=== PATIENT | female | born 1955 | race Caucasian/White ===

== ENCOUNTER 2021-01-20 10:23 | Observation (INO) ==
[~2021-01-20 10:23] MED LIST: Buffered Lidocaine 1% SYRIN 1 ml INTRADERM ONE; Clindamycin 900 MG/D5W BAG 900 MG/50 ML BAG IVPB ONE; DiMENhydriNATE IV 50 mg/ml 1 ml VIAL IV PUSH PRN; Lactated Ringers 1000 ml BAG 1,000 ML IV SCH; Naloxone 0.4 mg VIAL 0.4 mg/ml 1 ml VIAL IV PRN; Ondansetron 4 mg VIAL 2 MG/ML 2 ml VIAL IV PRN; oxyCODONE/Acetamin 5/325 mg TAB PO PRN
[2021-01-20] MEDS ORDERED: Heparin 5000 UNITS/ML 1 mL VIAL ONE (10:40)
[2021-01-20] MEDS ORDERED: Midazolam 5 mg/5 ml VIAL 1 mg/ml 5 ml VIAL (5 mg) ONE (11:22)
[2021-01-20] MEDS ORDERED: fentaNYL 250 mcg/5 ml 50 MCG/ML 5 ml VIAL (250 MCG) ONE (11:22)
[2021-01-20] MEDS ORDERED: Dexamethasone IV 4 MG/ML VIAL 1 ml VIAL ONE (11:24)
[2021-01-20] MEDS ORDERED: Glycopyrrolate IV 0.2 MG/ML 1 ML VIAL ONE (11:24)
[2021-01-20] MEDS ORDERED: Lidocaine 4% TOPICAL 50 ML TOP.SOLN ONE (11:24)
[2021-01-20] MEDS ORDERED: Propofol 10 MG/ML 20 ML BTL ONE (11:24)
[2021-01-20] MEDS ORDERED: Rocuronium 50 mg VIAL 10 mg/ml 5 ml VIAL (50 mg) ONE ×2 (11:28→13:50)
[2021-01-20] MEDS ORDERED: Bupivacaine 0.25% EPI 200,000 30 ML SDV ONE (11:43)
[2021-01-20] MEDS ORDERED: Phenylephrine 40 mcg/mL 10mL (400mcg) SYRINGE ONE (13:56)
[2021-01-20] MEDS ORDERED: fentaNYL 100 mcg/2 ml 50 MCG/ML VIAL ONE (16:25)
[2021-01-20] MEDS: fentaNYL 100 mcg/2 ml 50 MCG/ML VIAL IV PRN ×2 (16:26→16:39)
[2021-01-20] MEDS ORDERED: Ondansetron 4 mg VIAL 2 MG/ML 2 ml VIAL IV PRN (16:48)
[2021-01-20] MEDS ORDERED: oxyCODONE/Acetamin 5/325 mg TAB PO PRN (16:54)
[2021-01-20] MEDS: Lactated Ringers 1000 ml BAG 1,000 ML IV SCH (18:00)
[2021-01-21] MEDS: Lactated Ringers 1000 ml BAG 1,000 ML IV SCH (03:26)
[2021-01-21 06:23] LABS: ABS Lymphocytes 0.6 10^3/ul (1.0-4.8); ABS Monocytes 0.4 10^3/ul (0-0.8); Eosinophil % 0.2 %; Hematocrit 35 % (35-47); Hemoglobin 11.9 g/dL (12.0-16.0); Lymphocyte % 8.9 %; Mean Corpuscular HGB Conc 34 g/dL (31-36); Mean Corpuscular Hemoglobin 30 pg (27-31); Mean Corpuscular Volume 89 fL (80-97); Platelet Count 144 10^3/uL (150-450); Red Blood Count 3.97 10^6 /uL (3.70-4.87); Red Cell Distribution Width 17 % (10-15); White Blood Count 7.1 10^3/uL (3.5-10.8)
[2021-01-21 06:39] LABS: Calcium 8.6 mg/dL (8.6-10.3); EGFR African American 79.1 (>60); EGFR Non-African American 65.3 (>60); Potassium 4.4 mmol/L (3.5-5.0)
[2021-01-21 07:55] VITALS: BP 125/62
== END 2021-01-21 10:05 | disposition home or self-care (01) ==
LOC: SSU 10:23 → OR 10:23
PROVIDERS: ADMIT Surgery; ATTEND Surgery